=== PATIENT | male | born 1935 | race Asian ===

== ENCOUNTER 2016-12-31 07:52 | Emergency (ER) | payer MEDICARE, OTHER ==
[~2016-12-31] VITALS: Ht 165.1 cm; Wt 78.0 kg
[2016-12-31 07:56] VITALS: Ht 165.1 cm; Wt 78.0 kg
[2016-12-31] MEDS ORDERED: MECLIZINE 12.5 MG TAB PO ONE (08:30)
[2016-12-31] MEDS ORDERED: DIAZEPAM 5 MG/ML SYG IV ONE (08:30)
[2016-12-31] MEDS ORDERED: CLOP75TA4 PO (08:56)
[2016-12-31] MEDS ORDERED: OMEP20CA16 PO (08:59)
[2016-12-31] MEDS ORDERED: LORA10TA3 PO (08:59)
[2016-12-31] MEDS ORDERED: MECL-77 PO ×2 (08:59→11:55)
[2016-12-31] MEDS ORDERED: CRES10 PO (08:59)
[2016-12-31] MEDS ORDERED: VALS1TAB74 ORAL (08:59)
--- NOTE | 2016-12-31 10:03 | RADRPT ---
PROCEDURE: CT brain without contrast CLINICAL INDICATION: Headaches TECHNIQUE: CT of the brain without contrast performed on a multidetector CT scanner, with multiplan ar reformats. One or more of the following dose reduction techniques were used: Automated exposure control, adjustment in mA and / or kV according to patient size, use of iterative reconstructive [place] hnique. CTDIvol = 45 mGy; DLP = 810 mGy-cm. COMPARISON: 10/30/2008 FINDINGS: No acute intracranial hemorrhage is identified. No extra-axial fluid collection is seen. There is no mass effect. No midline shift is identified. Ventricles and sulci are mildly enlarged compatible with generalized volume loss. There are minimal areas of hypodensity in the periventricular - deep white matter which are nonspeci fic but suggestive of chronic small vessel ischemic changes. Rousseau-white differentiation is preserve d. Atherosclerotic calcifications of the proximal intracranial arteries are noted. Osseous structures are unremarkable. Mastoid air cells and imaged paranasal sinuses grossly clear. IMPRESSION: 1. No evidence of acute intracranial pathology. 2. Mild generalized volume loss, with minimal chronic small vessel ischemic changes. RPTAT: VV .Shaun Putnam MD, MD Date Time Electronically viewed and signed by .Shaun Putnam MD, MD on 12/31/2016 10:02 .O/
[2016-12-31] MEDS ORDERED: SOD CHLORIDE 0.9% 1,000 ML IV ONE (10:30)
[2016-12-31] MEDS ORDERED: DIAZ-90 PO (11:55)
--- NOTE | 2016-12-31 12:01 | ERD ---
ER Documentation Chief Complaint Date/Time DATE: 12/31/16 TIME: 11:58 Chief Complaint from home c/o dizziness and nausea onset last night HPI This 81-year-old male with a history of chronic vertigo is here for worsening of his vertigo onset last night. He said he has sudden onset of severe room spinning that made him throw up once. He has no neurological complaints such as numbness weakness in his arms or legs no speech changes no visual change. The patient says he took a meclizine at 3 AM but he says his prescription is 2 years old. He says the symptoms are much worse when he moves his head and better when he remains completely still. He says he feels like the room is spinning very fast. He says this is exactly like prior episodes in the past. ROS All systems reviewed and are negative except as per history of present illness. Medications Home Meds Active Scripts Diazepam* (Valium*) 5 Mg Tablet, 5 MG PO Q8 for vertigo, #14 TAB Prov:ALYSON BERUMEN DO 12/31/16 Meclizine Hcl* (Meclizine Hcl*) 25 Mg Tablet, 25 MG PO Q8H Y for DIZZINESS, #30 TAB Prov:ALYSON BERUMEN DO 12/31/16 Reported Medications Valsartan-Hydrochlorothiazide (Valsartan-HCTZ) 80-12.5 Mg Tablet, 1 TAB ORAL DAILY, #90 12/31/16 Meclizine Hcl* (Meclizine Hcl*) 25 Mg Tablet, 25 MG PO TID, TAB 12/31/16 Loratadine* (Loratadine*) 10 Mg Tablet, 10 MG PO DAILY, #30 TAB 12/31/16 Omeprazole* (Omeprazole*) 20 Mg Capsule.dr, 20 MG PO DAILY, #30 CAP 12/31/16 Rosuvastatin Calcium* (Crestor*) 10 Mg Tablet, 10 MG PO QHS, #30 TAB 12/31/16 Clopidogrel Bisulfate* (Clopidogrel Bisulfate*) 75 Mg Tablet, 75 MG PO DAILY, # 30 TAB 12/31/16 Allergies Allergies: Coded Allergies: No Known Allergy (Unverified , 12/31/16) PMhx/Soc Medical and Surgical Hx: pt denies Medical Hx, pt denies Surgical Hx Hx Alcohol Use: No Hx Substance Use: No Hx Tobacco Use: No Smoking Status: Never smoker FmHx Family History: No coronary disease Physical Exam Vitals Vital Signs Date Time Temp Pulse Resp B/P Pulse Ox O2 Delivery O2 Flow Rate FiO2 12/31/16 07:56 98.3 56 18 156/92 99 Physical Exam Const: Well-developed, well-nourished Head: Atraumatic, normocephalic Eyes: Normal Conjunctiva, PERRLA, EOMI, normal sclera, no nystagmus ENT: Normal External Ears, Nose and Mouth, moist mucus membranes. Neck: Full range of motion. No meningismus, no lymphadenopathy. Resp: Clear to auscultation bilaterally, no wheezing, rhonchi, rales Cardio: Regular rate and rhythm, no murmurs, S1 S2 present Abd: Soft, non tender x 4, non distended. Normal bowel sounds, no guarding or rebound, no pulsitile abdominal masses or bruits Skin: No petechiae or rashes, no ecchymosis , no maculopapular rash Back: No midline or flank tenderness Ext: No cyanosis, or edema, FROM x 4, normal inspection, neurovascularly intact x 4 Neur: Awake and alert, STR 5/5 x 4, sensation intact x 4, no focal findings, cerebellum intact, or any rotation of the head induces vertigo is severe Psych: Normal Mood and Affect Results 24 hrs Current Medications Medications (Trade) Dose Ordered Sig/Abhilash Route PRN Reason Start Time Stop Time Status Last Admin Dose Admin Meclizine HCl (Antivert) 25 mg ONCE ONCE PO 12/31/16 08:30 12/31/16 08:31 DC 12/31/16 08:46 Diazepam 5 mg 5 mg ONCE ONCE IV 12/31/16 08:30 12/31/16 08:31 DC 12/31/16 08:47 Sodium Chloride (NS) 1,000 ml @ 1,000 mls/hr Q1H ONCE IV 12/31/16 10:30 12/31/16 11:29 DC 12/31/16 10:42 Procedures/MDM PROCEDURE: CT brain without contrast CLINICAL INDICATION: Headaches TECHNIQUE: CT of the brain without contrast performed on a multidetector CT scanner, with multiplanar reformats. One or more of the following dose reduction techniques were used: Automated exposure control, adjustment in mA and / or kV according to patient size, use of iterative reconstructive technique. CTDIvol = 45 mGy; DLP = 810 mGy-cm. COMPARISON: 10/30/2008 FINDINGS: No acute intracranial hemorrhage is identified. No extra-axial fluid collection is seen. There is no mass effect. No midline shift is identified. Ventricles and sulci are mildly enlarged compatible with generalized volume loss. There are minimal areas of hypodensity in the periventricular - deep white matter which are nonspecific but suggestive of chronic small vessel ischemic changes. Rousseau-white differentiation is preserved. Atherosclerotic calcifications of the proximal intracranial arteries are noted. Osseous structures are unremarkable. Mastoid air cells and imaged paranasal sinuses grossly clear. IMPRESSION: 1. No evidence of acute intracranial pathology. 2. Mild generalized volume loss, with minimal chronic small vessel ischemic changes. RPTAT: VV .Shaun Putnam MD, Date Time Electronically viewed and signed by .Shaun Putnam MD, on 12/31/2016 10:02 .O/ CC: ALYSON BERUMEN DO Patient is given IV fluids, Valium and meclizine. On reexamination at 11:45 AM the patient is feeling much better. He can move his head now without any spinning. There is no evidence of any stroke on CT scan or clinically. A fully stable for discharge home with meclizine and Valium. He states this is exactly like prior episodes he does present as a peripheral vertigo and not a central vertigo Departure Diagnosis: Primary Impression: Vertigo Condition: Stable Patient Instructions: Vertigo, Unspecified ALYSON BERUMEN DO Dec 31, 2016 12:01
[2016-12-31 12:22] VITALS: BP 126/78; PULSE 60; RESP 20
== END 2016-12-31 12:23 | disposition home or self-care (01) ==
LOC: E/R 07:52
DX: R42 Dizziness and giddiness (principal); R40.2252 Coma scale, best verbal response, oriented, at arrival to emergency department
CPT/HCPCS: 70450; 96374; 99285; J3360; J7030